=== PATIENT | female | born 2000 | race Caucasian/White ===

== ENCOUNTER 2019-04-09 11:11 | Emergency (ER) | payer OTHER, SELFPAY ==
--- NOTE | 2019-04-09 11:14 | ED_ITS ---
HPI - URI/Sore Throat <Pauline Cox PA-C - Last Filed: 04/09/19 12:39> General Chief Complaint: Upper Respiratory Symptoms Stated Complaint: flu symptoms Time Seen by Provider: 04/09/19 11:13 Source: patient Mode of arrival: Ambulatory Limitations: no limitations History of Present Illness HPI Narrative: This healthy 19-year-old female comes to ED due to concern for possible influenza. She is 18 weeks , doing well with . She flew here from [place] 2 days ago to visit significant other's family. Significant other and his mother have been ill with similar symptoms. She states that yesterday, she developed sore throat ?burning, not like strep throat?, and sinus pain and pressure, earache, more on the right, and watery eyes. She has had nasal congestion. She states that she has mostly dry cough, sometimes chest hurts with cough, otherwise she denies chest pain, she denies dyspnea. She denies any new pain or swelling in her extremities. She denies any rash. She states that she felt warm earlier but has not had any known fever. She does have body aches. She denies any non domestic travel/terrell virus exposure Related Data Allergies Allergy/AdvReac Type Severity Reaction Status Date / Time No Known Drug Allergies Allergy Verified 04/09/19 11:18 Review of Systems <Pauline Cox PA-C - Last Filed: 04/09/19 12:39> Review of Systems ROS Unobtainable: All systems reviewed & are unremarkable except as noted in HPI and below Patient History <Pauline Cox PA-C - Last Filed: 04/09/19 12:39> Medical History (Updated 04/09/19 @ 12:14 by Pauline Cox PA-C) Patient denies medical problems (Chronic) Surgical History (Updated 04/09/19 @ 11:37 by Pauline Cox PA-C) No history of previous surgery (Chronic) Social History Smoking Status: Never smoker Smoking Status: Never smoker Exam <Pauline Cox PA-C - Last Filed: 04/09/19 12:39> Narrative Exam Narrative: GENERAL APPEARANCE: Patient sitting comfortably, appears well HEAD: Mild generalized sinus tenderness EYES: PERRL, EOMI. EARS: Normal auditory canals, TMS intact with normal light reflexes. ORAL CAVITY: Normal oropharynx. THROAT: Minimal erythema, PND noted, no exudate NECK/THYROID: Neck supple, full range of motion, shotty anterior cervical lymphadenopathy. LUNGS: Clear to auscultation bilaterally, no cough on exam. HEART: RRR without murmur, nl S1, S2, no S3 or S4. DERMATOLOGIC: No exanthem EXTREMITIES: No edema, no calf tenderness Initial Vital Signs Initial Vital Signs: Vital Signs Temperature 97.3 F L 04/09/19 11:18 Pulse Rate 109 H 04/09/19 11:18 Respiratory Rate 15 04/09/19 11:18 Blood Pressure 145/74 H 04/09/19 11:18 Pulse Oximetry 99 04/09/19 11:18 <Stephen Garrido DO - Last Filed: 04/09/19 12:45> Initial Vital Signs Initial Vital Signs: Vital Signs Temperature 97.3 F L 04/09/19 11:18 Pulse Rate 109 H 04/09/19 11:18 Respiratory Rate 15 04/09/19 11:18 Blood Pressure 145/74 H 04/09/19 11:18 Pulse Oximetry 99 04/09/19 11:18 Course <Pauline Cox PA-C - Last Filed: 04/09/19 12:39> Orders Ordered: ED Orders 04/09/19 11:15 Influenza A & B (PCR) Stat Vital Signs Vital signs: Vital Signs - 8 hr 04/09/19 11:18 04/09/19 12:25 Temperature 97.3 F L Pulse Rate 109 H 88 Respiratory Rate 15 Blood Pressure 145/74 H 121/84 Pulse Oximetry 99 100 <Stephen Garrido DO - Last Filed: 04/09/19 12:45> Orders Ordered: ED Orders 04/09/19 11:15 Influenza A & B (PCR) Stat Vital Signs Vital signs: Vital Signs - 8 hr 04/09/19 11:18 04/09/19 12:25 Temperature 97.3 F L Pulse Rate 109 H 88 Respiratory Rate 15 Blood Pressure 145/74 H 121/84 Pulse Oximetry 99 100 MDM - URI/Sore Throat <Pauline Cox PA-C - Last Filed: 04/09/19 12:39> Lab Data Labs: Lab Results 04/09/19 Range/Units 11:15 Influenza A (RT-PCR) Flu a negative (NEGATIVE) Influenza B (RT-PCR) Flu b negative (NEGATIVE) <Stephen Garrido DO - Last Filed: 04/09/19 12:45> Lab Data Labs: Lab Results 04/09/19 Range/Units 11:15 Influenza A (RT-PCR) Flu a negative (NEGATIVE) Influenza B (RT-PCR) Flu b negative (NEGATIVE) Discharge Plan Departure Patient Disposition: Home Clinical Impression: Upper respiratory infection Qualifiers: URI type: unspecified viral URI Qualified Code(s): J06.9 - Acute upper respiratory infection, unspecified Discharge Date/Time: 04/09/19 12:26 Instructions: DI for Viral Upper Respiratory Infection -- Adult Activity Restrictions/Additional Instructions: Your test for the flu is negative today, and given your exposures it is most likely that you have another viral upper respiratory infection. Please rest, take Tylenol as needed for aches or fever. You can use an [id number] antihistamine such as Benadryl or Zyrtec if needed for postnasal drip. As we talked about, you should return to the ED if you develop a high fever not responding to Tylenol, or have difficulty breathing, new chest pain or other new symptoms that you are concerned about Referrals: Zaki Reeder [Other] <Stephen Garrido DO - Last Filed: 04/09/19 12:45> Sign Out Provider Sign Out Attestation: Dr Garrido Co-Sign Statement: I was available for consultation during this patient's emergency department visit. This chart is signed by myself for administrative purposes only. I did not have direct contact with this patient during this visit. They were seen independently by the APC.
[2019-04-09 11:18] VITALS: BP 145/74; PULSE 109; RESP 15; TEMP 36.3; O2SAT 99; BMI 19.5
[2019-04-09 11:53] LABS: Influenza A - CEPHEID Flu A NEGATIVE (NEGATIVE); Influenza B - CEPHEID Flu B NEGATIVE (NEGATIVE)
[2019-04-09 12:25] VITALS: BP 121/84; PULSE 88; O2SAT 100
== END 2019-04-09 12:26 | disposition home or self-care (01) ==
PROVIDERS: Emergency Provider Internal Medicine
DX: J02.9 Acute pharyngitis, unspecified (principal)
CPT/HCPCS: 87502; 99281; 99283

== ENCOUNTER 2019-04-11 12:39 | Emergency (ER) | payer OTHER, SELFPAY ==
[2019-04-11 12:40] VITALS: BP 135/64; PULSE 100; RESP 18; TEMP 36.4; O2SAT 99
--- NOTE | 2019-04-11 12:46 | DI.US.S_ITS ---
PROCEDURE: US OB LIMITED INDICATIONS: VAGINAL BLEEIDNG, CRAMPING TECHNIQUE: Real-time scanning was performed of the fetus, with image documentation. COMPARISON: None. FINDINGS: A single living intrauterine gestation is present. Presentation: Cephalic Placenta: Placental position is anterior without evidence of previa. There is a small hypoechoic focus along the posterior aspect of the anterior uterus that measures 1.6 x 0.6 x 0.9 cm it does not demonstrate internal vascularity. Amniotic fluid index: 13.3 cm, normal range is 5-24 cm. heart rate: 150 beats per minute. Maternal cervical canal: 3.3 cm, closed without funneling. Estimated gestational age from initial scan: 19 weeks. IMPRESSION: 1. Questionable very small retroplacental hemorrhage. Followup imaging would be helpful to evaluate for progression. 2. Live intrauterine . 3. Closed cervix. No previa. Dictated by: Keyshawn Owens M.D. on 04/11/2019 at 12:19 Approved by: Keyshawn Owens M.D. on 04/11/2019 at 12:22
--- NOTE | 2019-04-11 12:59 | ED_ITS ---
HPI - <Gilson SchmidtBILL chauhan - Last Filed: 04/11/19 14:24> General Chief complaint: OB/Uterine Contractions Stated complaint: 19 wks preg, cramping and bleeding Time Seen by Provider: 04/11/19 12:46 Source: patient Mode of arrival: Ambulatory Limitations: no limitations History of Present Illness HPI Narrative: This is a 19-year-old female, nonsmoker,who presents to ED with significant other with chief complain of vaginal bleeding which started 30 minutes prior arriving to ED and she is currently . Patient states she had suprapubic cramping discomfort for last 2 days. Patient reports IUP has been verified in [place], [place] and is a visitor. Reports last menstruation was in mid October 2018 and her in [place] is 09/05/2019. This is . Patient reports she has established OB care back at home and she will be returning to home in [place] on 04/21/19. Patient denies chest pain, breathing difficulty, lightheadedness, nausea or vomiting, urinary symptoms. She reports mild cold symptoms but no fever. Hx Last Menstrual Period: mid October 2018 Expected Date of Delivery: 09/05/19 Related Data Home Medications Medication Instructions Recorded Confirmed vit-iron fum-folic ac 1 tab PO DAILY 04/11/19 04/11/19 [ Vitamin] Allergies Allergy/AdvReac Type Severity Reaction Status Date / Time No Known Drug Allergies Allergy Verified 04/09/19 11:18 Review of Systems <Gilson HoffmanBILL - Last Filed: 04/11/19 14:24> Review of Systems Narrative: General: Denies fever, chills, fatigue, malaise, sweats. HEENT: Denies sinus pain, ear pain, sore throat, difficulty swallowing, dizziness. Respiratory: Denies dyspnea, (+) mild cough, wheezing, hemoptysis, sputum. Cardiovascular: Denies chest pain, palpitations, orthopnea, edema. Gastrointestinal: Denies nausea, vomiting, (+) constant suprapubic cramping pain 6/10, diarrhea, constipation, melena. : Denies dysuria, frequency, incontinence, hematuria, urinary retention. Musculoskeletal: Denies weakness, joint pain or bony pain. Skin: Denies rash, skin lesions, or other. Neurologic: Denies weakness, headache, numbness, change in speech, confusion, seizures, incoordination. Psychiatric: No concerning psychosocial issues. 12-point review of systems is negative except for those stated above. PMFSH - <BILL Zamora - Last Filed: 04/11/19 14:24> Past Medical History Medical history: Reports no medical history Surgical history: Reports no surgical history CHIEF OF PEDIATRIC UROLOGY history: Reports No CHIEF OF PEDIATRIC UROLOGY History Hx Last Menstrual Period: mid October 2018 Expected Date of Delivery: 09/05/19 Psychiatric history: Reports no psych history Exam <BILL Zamora - Last Filed: 04/11/19 14:24> Narrative Exam Narrative: GEN: Alert, oriented x 3, well appearing and nourished, and in no acute distress. Head: Normal cephalic, atraumatic. No scalp or temporal tenderness, palpable mass or rash. EYES: Pupils are equal, round, and reactive to light and accommodation. Extraocular muscles are intact bilaterally. There is no subconjunctival hemorrhage, exudate and sclera non-icteric. ENT: Hearing grossly intact. Nose without bleeding, purulent discharge or deviation. Facial sinuses nontender to palpate. Mucous membrane moist, no mucosal lesion. Throat without erythema, tonsillar hypertrophy or exudate. Uvula in midline, airway patent. Neck: Trachea in midline. No JVD, non-tender without lymphadenopathy. No masses or thyroid megaly. Supple, non-tender and no meningeal signs. CARDIAC: Normal regular rate and rhythm without murmurs, gallops, or rubs. No chest wall tenderness. No peripheral edema, cyanosis or pallor. Capillary refi ll is less than 2 seconds. RESPIRATORY: Lungs are clear to auscultate bilaterally. No cough, wheezes, rales, or rhonchi. No stridor, respiratory distress, increase work of breathing, or accessary muscle used. ABD: Abdomen soft, mild tenderness to palpate in suprapubic region and non-distended. No guarding or rebound tenderness to palpate. Bowel sounds are normal in all 4 quadrants. There is no palpable masses or organomegaly. EXT: Full painless ROM of all extremities with no loss of sensation, strength, effusion or edema. SKIN: Warm, dry, normal color for patient. No erythema, lesions or rash over visible areas. BACK: Nontender without deformity or crepitance. No flank tenderness. NEUROLOGICAL: Alert and oriented to place, time and person. Sensation and motor function intact bilaterally. No facial droops, dysphasia. PSYCHIATRIC: Good judgement and reason, without hallucinations, abnormal affect or abnormal behaviors during the examination. Initial Vital Signs Initial Vital Signs: Vital Signs Temperature 97.6 F 04/11/19 12:40 Pulse Rate 100 H 04/11/19 12:40 Respiratory Rate 18 04/11/19 12:40 Blood Pressure 135/64 04/11/19 12:40 Pulse Oximetry 99 04/11/19 12:40 <Hiren Baker MD - Last Filed: 04/12/19 08:20> Initial Vital Signs Initial Vital Signs: Vital Signs Temperature 97.6 F 04/11/19 12:40 Pulse Rate 100 H 04/11/19 12:40 Respiratory Rate 18 04/11/19 12:40 Blood Pressure 135/64 04/11/19 12:40 Pulse Oximetry 99 04/11/19 12:40 Scores <BILL Zamora - Last Filed: 04/11/19 14:24> GCS [place] coma scale eye opening: Spontaneous [place] coma scale verbal response: Orientated [place] coma scale motor response: Obey commands [place] coma scale total score: 15 Course <BILL Zamora - Last Filed: 04/11/19 14:24> Orders Ordered: ED Orders 04/11/19 12:46 US OB limited Stat 04/11/19 12:50 ABO RH Type Stat Complete Blood Count AUTO DIFF Stat Comprehensive Metabolic Panel Stat HCG Quantitative /Beta subunit Stat Partial Thromboplastin Time Stat Prothrombin Time INR Stat Vital Signs Vital signs: Vital Signs - 8 hr 04/11/19 12:40 04/11/19 13:51 Temperature 97.6 F Pulse Rate 100 H 88 Respiratory Rate 18 Blood Pressure 135/64 Blood Pressure [Right Arm] 134/83 Pulse Oximetry 99 100 <Hiren Baker MD - Last Filed: 04/12/19 08:20> Orders Ordered: ED Orders 04/11/19 12:46 US OB limited Stat 04/11/19 12:50 ABO RH Type Stat Complete Blood Count AUTO DIFF Stat Comprehensive Metabolic Panel Stat HCG Quantitative /Beta subunit Stat Partial Thromboplastin Time Stat Prothrombin Time INR Stat Vital Signs Vital signs: Vital Signs - 8 hr 04/11/19 12:40 04/11/19 13:51 Temperature 97.6 F Pulse Rate 100 H 88 Respiratory Rate 18 Blood Pressure 135/64 Blood Pressure [Right Arm] 134/83 Pulse Oximetry 99 100 MDM - OB/Uterine Contractions <BILL Zamora - Last Filed: 04/11/19 14:24> Differential Diagnosis Differential diagnosis: Likely eclampsia and other (Placenta rupture, placenta previa, contraction, miscarriage) Medical Records Attestation: I reviewed the patient's medical records. Lab Data Attestation: I reviewed the patient's lab results. Result diagrams: 04/11/19 12:50 04/11/19 12:50 Labs: Lab Results 04/11/19 04/11/19 04/11/19 Range/Units 12:50 12:50 12:50 WBC 12.9 H (4.5-11.0) X10^3/uL RBC 3.58 L (4.0-5.2) X10^6/uL Hgb 11.0 L (12.0-16.0) g/dL Hct 32.7 L (36-46) % MCV 91.4 (80-100) fL MCH 30.9 (26-34) PG MCHC 33.8 (30-36) % RDW 13.2 (11.6-14.8) % Plt Count 266 (150-400) X10^3/uL Neut % (Auto) 81.6 H (50-75) % Lymph % (Auto) 8.7 L (25-40) % [place] % (Auto) 7.2 (3-14) % Eos % (Auto) 2.3 (2-4) % Baso % (Auto) 0.2 (0-2) % Neut # (Auto) 22130 H (8289-7041) /uL Lymph # (Auto) 1100 (7018-1768) /uL [place] # (Auto) 900 (0-900) /uL Eos # (Auto) 300 (0-450) /uL Baso # (Auto) 0 (0-100) /uL PT (10.1-12.7) SECONDS INR (0.9-1.3) APTT (26.4-36.2) SECONDS Sodium 136 L (137-145) mmol/L Potassium 3.8 (3.4-5.1) mmol/L Chloride 107 (98-107) mmol/L Carbon Dioxide 22 (22-32) mmol/L BUN 6 L (7-17) mg/dL Creatinine 0.50 L (0.52-1.04) mg/dL Estimated GFR > 60.0 (>60) mL/min BUN/Creatinine Ratio 12.0 (6-22) Glucose 85 (70-100) mg/dL Calcium 9.0 (8.4-10.2) mg/dL Total Bilirubin 0.2 (0.2-1.3) mg/dL AST 20 (14-36) IU/L ALT 14 (<35) IU/L Alkaline Phosphatase 64 (38-126) U/L Total Protein 6.7 (6.3-8.2) g/dL Albumin 3.5 (3.5-5.0) g/dL Globulin 3.2 (1.7-4.1) g/dL Albumin/Globulin Ratio 1.1 (1.0-2.8) HCG, Quant 64136 mIU/mL Blood Type A Positive 04/11/19 Range/Units 12:50 WBC (4.5-11.0) X10^3/uL RBC (4.0-5.2) X10^6/uL Hgb (12.0-16.0) g/dL Hct (36-46) % MCV (80-100) fL MCH (26-34) PG MCHC (30-36) % RDW (11.6-14.8) % Plt Count (150-400) X10^3/uL Neut % (Auto) (50-75) % Lymph % (Auto) (25-40) % [place] % (Auto) (3-14) % Eos % (Auto) (2-4) % Baso % (Auto) (0-2) % Neut # (Auto) (4766-9777) /uL Lymph # (Auto) (1741-9826) /uL [place] # (Auto) (0-900) /uL Eos # (Auto) (0-450) /uL Baso # (Auto) (0-100) /uL PT 11.2 (10.1-12.7) SECONDS INR 1.0 (0.9-1.3) APTT 26 L (26.4-36.2) SECONDS Sodium (137-145) mmol/L Potassium (3.4-5.1) mmol/L Chloride (98-107) mmol/L Carbon Dioxide (22-32) mmol/L BUN (7-17) mg/dL Creatinine (0.52-1.04) mg/dL Estimated GFR (>60) mL/min BUN/Creatinine Ratio (6-22) Glucose (70-100) mg/dL Calcium (8.4-10.2) mg/dL Total Bilirubin (0.2-1.3) mg/dL AST (14-36) IU/L ALT (<35) IU/L Alkaline Phosphatase (38-126) U/L Total Protein (6.3-8.2) g/dL Albumin (3.5-5.0) g/dL Globulin (1.7-4.1) g/dL Albumin/Globulin Ratio (1.0-2.8) HCG, Quant mIU/mL Blood Type Urine Dip Bedside Urine Glucose Negative Bedside Urine Bilirubin - Negative Bedside Urine Ketone - Negative Urine Specific [place] 1.005 Bedside Urine Occult Blood - Negative Bedside Urine pH 6.5 Bedside Urine Protein - Negative Bedside Urine Urobilinogen - Negative Bedside Urine Nitrite - Negative Bedside Urine Leukocytes - Negative Esterase Imaging Data US - OB: Radiologist's Impression: [place] [address] Ultrasound Report Signed Patient: Jewell Biggs MMR#: [id number] : 2000Acct:[id number] Age/Sex: te of Service: 04/11/19 Loc: ED Accession Number: [id number] Procedure: US OB limited Ordering Provider: Hiren Baker MD PROCEDURE: US OB LIMITED INDICATIONS: VAGINAL BLEEIDNG, CRAMPING TECHNIQUE: Real-time scanning was performed of the fetus, with image documentation. COMPARISON: None. FINDINGS: A single living intrauterine gestation is present. Presentation: Cephalic Placenta: Placental position is anterior without evidence of previa. There is a small hypoechoic focus along the posterior aspect of the anterior uterus that measures 1.6 x 0.6 x 0.9 cm it does not demonstrate internal vascularity. Amniotic fluid index: 13.3 cm, normal range is 5-24 cm. heart rate: 150 beats per minute. Maternal cervical canal: 3.3 cm, closed without funneling. Estimated gestational age from initial scan: 19 weeks. IMPRESSION: 1. Questionable very small retroplacental hemorrhage. Followup imaging would be helpful to evaluate for progression. 2. Live intrauterine . 3. Closed cervix. No previa. Dictated by: Keyshawn Owens M.D. on 04/11/2019 at 12:19 Approved by: Keyshawn Owens M.D. on 04/11/2019 at 12:22 [facility] Narrative Medical decision making narrative: This is a about 19 week EGA female who is visiting from [place] presents to ED with light vaginal bleeding which started 30 minutes prior coming into ED with abdomen cramping discomfort for 2 days. Urine test does not indicate urinary tract infection. Ob ultrasound test shows questionable small retro placental hemorrhage without evidence of previa. heart tone was 150 with closed cervix. Patient re ports her bleeding has not been increasing since came into ED. patient had stable vital signs with normal blood pressure. CBC shows mild anemia and patient is currently taking vitamins and informed that patient could add low dose of iron supplements. Unremarkable [place] [address] and A positive blood type. Dr. Grace (CHIEF OF PEDIATRIC UROLOGY) was consulted over the phone and advised pelvic rest and avoid strenuous activities and to follow up with rinkman provider when she returns to home with strict return precautions to ED. patient informed it is okay to take Tylenol as needed and provided ultrasound report to patient. Patient verbalized understanding and in agreement with the treatment plan. <Hiren Baker MD - Last Filed: 04/12/19 08:20> Lab Data Labs: Lab Results 04/11/19 04/11/19 04/11/19 Range/Units 12:50 12:50 12:50 WBC 12.9 H (4.5-11.0) X10^3/uL RBC 3.58 L (4.0-5.2) X10^6/uL Hgb 11.0 L (12.0-16.0) g/dL Hct 32.7 L (36-46) % MCV 91.4 (80-100) fL MCH 30.9 (26-34) PG MCHC 33.8 (30-36) % RDW 13.2 (11.6-14.8) % Plt Count 266 (150-400) X10^3/uL Neut % (Auto) 81.6 H (50-75) % Lymph % (Auto) 8.7 L (25-40) % [place] % (Auto) 7.2 (3-14) % Eos % (Auto) 2.3 (2-4) % Baso % (Auto) 0.2 (0-2) % Neut # (Auto) 95213 H (4852-9259) /uL Lymph # (Auto) 1100 (8154-8476) /uL [place] # (Auto) 900 (0-900) /uL Eos # (Auto) 300 (0-450) /uL Baso # (Auto) 0 (0-100) /uL PT (10.1-12.7) SECONDS INR (0.9-1.3) APTT (26.4-36.2) SECONDS Sodium 136 L (137-145) mmol/L Potassium 3.8 (3.4-5.1) mmol/L Chloride 107 (98-107) mmol/L Carbon Dioxide 22 (22-32) mmol/L BUN 6 L (7-17) mg/dL Creatinine 0.50 L (0.52-1.04) mg/dL Estimated GFR > 60.0 (>60) mL/min BUN/Creatinine Ratio 12.0 (6-22) Glucose 85 (70-100) mg/dL Calcium 9.0 (8.4-10.2) mg/dL Total Bilirubin 0.2 (0.2-1.3) mg/dL AST 20 (14-36) IU/L ALT 14 (<35) IU/L Alkaline Phosphatase 64 (38-126) U/L Total Protein 6.7 (6.3-8.2) g/dL Albumin 3.5 (3.5-5.0) g/dL Globulin 3.2 (1.7-4.1) g/dL Albumin/Globulin Ratio 1.1 (1.0-2.8) HCG, Quant 08637 mIU/mL Blood Type A Positive 04/11/19 Range/Units 12:50 WBC (4.5-11.0) X10^3/uL RBC (4.0-5.2) X10^6/uL Hgb (12.0-16.0) g/dL Hct (36-46) % MCV (80-100) fL MCH (26-34) PG MCHC (30-36) % RDW (11.6-14.8) % Plt Count (150-400) X10^3/uL Neut % (Auto) (50-75) % Lymph % (Auto) (25-40) % [place] % (Auto) (3-14) % Eos % (Auto) (2-4) % Baso % (Auto) (0-2) % Neut # (Auto) (8579-5004) /uL Lymph # (Auto) (3804-4526) /uL [place] # (Auto) (0-900) /uL Eos # (Auto) (0-450) /uL Baso # (Auto) (0-100) /uL PT 11.2 (10.1-12.7) SECONDS INR 1.0 (0.9-1.3) APTT 26 L (26.4-36.2) SECONDS Sodium (137-145) mmol/L Potassium (3.4-5.1) mmol/L Chloride (98-107) mmol/L Carbon Dioxide (22-32) mmol/L BUN (7-17) mg/dL Creatinine (0.52-1.04) mg/dL Estimated GFR (>60) mL/min BUN/Creatinine Ratio (6-22) Glucose (70-100) mg/dL Calcium (8.4-10.2) mg/dL Total Bilirubin (0.2-1.3) mg/dL AST (14-36) IU/L ALT (<35) IU/L Alkaline Phosphatase (38-126) U/L Total Protein (6.3-8.2) g/dL Albumin (3.5-5.0) g/dL Globulin (1.7-4.1) g/dL Albumin/Globulin Ratio (1.0-2.8) HCG, Quant mIU/mL Blood Type Urine Dip Bedside Urine Glucose Negative Bedside Urine Bilirubin - Negative Bedside Urine Ketone - Negative Urine Specific [place] 1.005 Bedside Urine Occult Blood - Negative Bedside Urine pH 6.5 Bedside Urine Protein - Negative Bedside Urine Urobilinogen - Negative Bedside Urine Nitrite - Negative Bedside Urine Leukocytes - Negative Esterase Discharge Plan Departure Patient Disposition: Home Clinical Impression: Vaginal bleeding in patient after first trimester Discharge Date/Time: 04/11/19 14:35 Instructions: Placental Abruption, DI for Vaginal Bleeding During Activity Restrictions/Additional Instructions: You have been diagnosed with [vaginal bleeding during 2nd trimester. There is a small questionable retroplacental hemorrhage per ultrasound test. heart tone was 150. No obvious evidence of placenta previa today. You are slightly anemic per blood test today. Your blood type is A-positive and beta [place]cg was [address]. Your blood pressure was normal. Urine test does not show infection. Please do pelvic rest and no strenuous activities until your clear with your rinkman doctor.]. What to do: *Take your medications as directed. Please continue to take vitamins and you can even add a low dose of iron pills. You can take [id number] Tylenol for discomfort as needed. *Follow up with your OBGYN provider when you return to home in [place] on 04/21/19. Let them know you were seen in the ED and that we asked you to be seen in follow up. Please take the ambulance that was provided to you with ultrasound test result. *Return to ED if you have any new, worsening, or concerning symptoms, such as [increasing vaginal bleeding, pain, chest pain, breathing difficulty, lightheadedness, fainting episode, fever, or any acute concerns]. Prescriptions: No Action Vitamin 27 mg iron- 0.8 mg tablet 1 tab PO DAILY RF: 0
[2019-04-11 13:02] LABS: Add Manual Diff / Slide Review NO; Basophils Absolute Auto 0 /uL (0-100); Basophils Percent Auto 0.2 % (0-2); Eosinophils Absolute Auto 300 /uL (0-450); Eosinophils Percent Auto 2.3 % (2-4); Hematocrit 32.7 % (36-46); Lymphocytes Absolute Auto 1100 /uL (1100-4500); Lymphocytes Percent Auto 8.7 % (25-40); Mean Corpuscular HGB Conc 33.8 % (30-36); Mean Corpuscular Hemoglobin 30.9 PG (26-34); Mean Corpuscular Volume 91.4 fL (80-100); Monocytes Absolute Auto 900 /uL (0-900); Monocytes Percent Auto 7.2 % (3-14); Neutrophils Absolute Auto 10600 /uL (1500-7000); Neutrophils Percent Auto 81.6 % (50-75); Platelet Count 266 X10^3/uL (150-400); Red Blood Cell Count 3.58 X10^6/uL (4.0-5.2); Red Cell Distribution Width 13.2 % (11.6-14.8); White Blood Cell Count 12.9 X10^3/uL (4.5-11.0)
[2019-04-11 13:15] LABS: Alanine Aminotransferase 14 IU/L (<35); Albumin 3.5 g/dL (3.5-5.0); Albumin Globulin Ratio 1.1 (1.0-2.8); Alkaline Phosphatase 64 U/L (38-126); Aspartate Aminotransferase 20 IU/L (14-36); Bilirubin Total 0.2 mg/dL (0.2-1.3); Blood Urea Nitrogen 6 mg/dL (7-17); Carbon Dioxide 22 mmol/L (22-32); Chloride 107 mmol/L (98-107); Estimated Glomerular Filt Rate > 60.0 mL/min (>60); Globulin 3.2 g/dL (1.7-4.1); Glucose 85 mg/dL (70-100); HEMOLYSIS < 15 (0-50); Potassium 3.8 mmol/L (3.4-5.1); Sodium 136 mmol/L (137-145); Total Protein 6.7 g/dL (6.3-8.2)
[2019-04-11 13:20] LABS: Prothrombin Time 11.2 SECONDS (10.1-12.7)
[2019-04-11 13:23] LABS: PTT Partial Thromboplastin Tim 26 SECONDS (26.4-36.2)
[2019-04-11 13:51] VITALS: BP 134/83; PULSE 88; O2SAT 100
[2019-04-11 13:55] LABS: HCG Quantitative /Beta subunit 38479 mIU/mL
[2019-04-11 14:34] VITALS: BP 142/77; PULSE 87; RESP 17; O2SAT 100
== END 2019-04-11 14:35 | disposition home or self-care (01) ==
PROVIDERS: Emergency Medicine; Emergency Provider Nurse Practitioner Family
DX: O46.90 Antepartum hemorrhage, unspecified, unspecified trimester (principal); Z3A.19 19 weeks gestation of pregnancy
CPT/HCPCS: 36415; 76815; 80053; 81003; 84702; 85025; 85610; 85730; 86900; 86901; 99284

== ENCOUNTER 2019-04-12 13:29 | Emergency (ER) | payer OTHER, SELFPAY ==
[2019-04-12 14:00] VITALS: BP 120/65; PULSE 110; RESP 18; TEMP 37.1; O2SAT 100; BMI 19.5
[2019-04-12 17:05] LABS: Add Manual Diff / Slide Review NO; Basophils Absolute Auto 0 /uL (0-100); Basophils Percent Auto 0.2 % (0-2); Eosinophils Absolute Auto 200 /uL (0-450); Eosinophils Percent Auto 1.7 % (2-4); Hematocrit 34.5 % (36-46); Hemoglobin 11.5 g/dL (12.0-16.0); Lymphocytes Absolute Auto 800 /uL (1100-4500); Lymphocytes Percent Auto 7.1 % (25-40); Mean Corpuscular HGB Conc 33.3 % (30-36); Mean Corpuscular Hemoglobin 30.4 PG (26-34); Mean Corpuscular Volume 91.4 fL (80-100); Monocytes Absolute Auto 700 /uL (0-900); Monocytes Percent Auto 5.8 % (3-14); Neutrophils Absolute Auto 10200 /uL (1500-7000); Neutrophils Percent Auto 85.2 % (50-75); Platelet Count 267 X10^3/uL (150-400); Red Blood Cell Count 3.78 X10^6/uL (4.0-5.2); Red Cell Distribution Width 13.2 % (11.6-14.8); White Blood Cell Count 11.9 X10^3/uL (4.5-11.0)
[2019-04-12 17:18] LABS: Alanine Aminotransferase 13 IU/L (<35); Albumin 3.6 g/dL (3.5-5.0); Albumin Globulin Ratio 1.1 (1.0-2.8); Alkaline Phosphatase 73 U/L (38-126); Aspartate Aminotransferase 19 IU/L (14-36); Bilirubin Total 0.3 mg/dL (0.2-1.3); Blood Urea Nitrogen 6 mg/dL (7-17); Calcium 8.7 mg/dL (8.4-10.2); Carbon Dioxide 23 mmol/L (22-32); Chloride 106 mmol/L (98-107); Estimated Glomerular Filt Rate > 60.0 mL/min (>60); Globulin 3.3 g/dL (1.7-4.1); Glucose 77 mg/dL (70-100); HEMOLYSIS < 15 (0-50); Lipase 30 U/L (23-300); Sodium 136 mmol/L (137-145); Total Protein 6.9 g/dL (6.3-8.2)
[2019-04-12] MEDS: SODIUM CHLORIDE 0.9% 1,000 ML 1000 ML IV (18:02)
[2019-04-12] MEDS: ONDANSETRON 4 MG/2 ML INJ IV (18:02)
[2019-04-12] MEDS: PANTOPRAZOLE 40 MG VIAL IV (18:02)
[2019-04-12 18:25] LABS: RBC Urine None Seen (0-5/HPF)
[2019-04-12 18:43] LABS: Amorphous Sediment Urine 1+; Bacteria Urine Many (>30); Squamous Epithelial Cell Urine 5-10 /HPF (0-5/HPF); WBC Urine 5-10/HPF (0-5/HPF)
[2019-04-12 18:44] LABS: Culture Indicated Urine Specimen Cultured; Mucus Urine 1+ (Negative)
[2019-04-12] MEDS: NITROFURANTOIN ER 100 MG CAPSULE PO (19:18)
[2019-04-12] MEDS: ONDANSETRON 4 MG ODT PREPACK 1 BOTTLE MISC (19:57)
[2019-04-12 20:09] VITALS: BP 119/56; PULSE 98; RESP 16; TEMP 36.9; O2SAT 100
--- NOTE | 2019-04-13 01:42 | ED.NAVMDI ---
HPI - Nausea/Vomiting/Diarrhea <POLY ZamoraP - Last Filed: 04/13/19 01:59> General Chief complaint: Nausea/Vomiting/Diarrhea Stated complaint: vomiting Time Seen by Provider: 04/12/19 16:01 Source: patient Mode of arrival: Family Vehicle Limitations: no limitations History of Present Illness HPI Narrative: This is a 19-year-old female, nonsmoker, who presents to ED with multiple episodes of vomiting which started last night with low abdominal cramping discomfort and burning epigastric discomfort. Patient reports she also has URI symptoms and has a moist cough. Patient reports her vomiting is not associated with cough. Her nausea is increased with eating and drinking fluid. Patient denies blood in her emesis. Patient is currently 19 week EGA and was seen yesterday in ED with a small amount of vaginal bleeding and low abdominal cramping and was diagnosed with retroplacental hemorrhage. Patient denies further vaginal bleeding at this time and states has been feeling her fetus movement as usual. Patient denies urinary symptoms or fever and chills. She is a visitor from [facility] and will return to home later this month. Related Data Home Medications Medication Instructions Recorded Confirmed vit-iron fum-folic ac 1 tab PO DAILY 04/11/19 04/11/19 [ Vitamin] Previous Rx's Medication Instructions Recorded nitrofurantoin macrocrystal 100 mg PO Q12H 5 Days #9 cap 04/12/19 ondansetron 4 mg PO Q6-8H PRN #10 tab 04/12/19 Allergies Allergy/AdvReac Type Severity Reaction Status Date / Time No Known Drug Allergies Allergy Verified 04/12/19 14:04 Review of Systems <BILL Zamora - Last Filed: 04/13/19 01:59> Review of Systems Narrative: General: Denies fever, chills, fatigue, malaise, sweats. HEENT: Denies sinus pain, ear pain, sore throat, difficulty swallowing, dizziness. Respiratory: Denies dyspnea, cough, wheezing, hemoptysis, sputum. Cardiovascular: Denies chest pain, palpitations, orthopnea, edema. Gastrointestinal: See HPI : Denies dysuria, frequency, incontinence, hematuria, urinary retention. Musculoskeletal: Denies weakness, joint pain or bony pain. Skin: Denies rash, skin lesions, or other. Neurologic: Denies weakness, headache, numbness, change in speech, confusion, seizures, incoordination. Psychiatric: No concerning psychosocial issues. 12-point review of systems is negative except for those stated above. Patient History <BILL Zamora - Last Filed: 04/13/19 01:59> Medical History Patient denies medical problems (Chronic) Surgical History No history of previous surgery (Chronic) Social History Smoking Status: Never smoker Smoking Status: Never smoker alcohol intake frequency: 0-2 drinks per day Substance Use Type: does not use Exam <BILL Zamora - Last Filed: 04/13/19 01:59> Narrative Exam Narrative: General appearance: well developed, well nourished, in no acute distress. Head: normocephalic, atraumatic, no scalp lesions, non-tender. ENT: Hearing grossly intact. Mucous membrane moist, no mucosal lesion. Throat without erythema, tonsillar hypertrophy or exudate. Uvula in midline, airway patent. Neck/Thyroid: neck supple, full range of motion, no visible masses or meningeal signs. No JVD, non-tender without lymphadenopathy. Skin: no suspicious rashes, lesions over visible areas. Warm and dry and appropriate color for ethnicity. Heart: no clubbing, no cyanosis, no edema. S1 and S2 normal. RRR w/o murmurs, clicks, or bruits. Lungs: Breathing even and unlabored. No stridor. No accessory muscles used. Able to speak in full sentences. Chest: normal shape and expansion. Abdomen: non-obese, non-distended, bowel sounds intake in all quadrant. There is no guarding, rebound tenderness, organomegaly. Mild tenderness to palpate in epigastric region. Neurologic: alert and oriented. Cognitive exam, DISABILITY COUNSELOR and PNS grossly intact on informal exam. Psych: good eye contact, normal affect. Initial Vital Signs Initial Vital Signs: Vital Signs Temperature 98.7 F 04/12/19 14:00 Pulse Rate 110 H 04/12/19 14:00 Respiratory Rate 18 04/12/19 14:00 Blood Pressure 120/65 04/12/19 14:00 Pulse Oximetry 100 04/12/19 14:00 Other: FHT in 145-154 <Hiren Baker MD - Last Filed: 04/13/19 23:17> Initial Vital Signs Initial Vital Signs: Vital Signs Temperature 98.7 F 04/12/19 14:00 Pulse Rate 110 H 04/12/19 14:00 Respiratory Rate 18 04/12/19 14:00 Blood Pressure 120/65 04/12/19 14:00 Pulse Oximetry 100 04/12/19 14:00 Scores <BILL Zamora - Last Filed: 04/13/19 01:59> GCS [place] coma scale eye opening: Spontaneous Rashid coma scale verbal response: Orientated Rashid coma scale motor response: Obey commands Rashid coma scale total score: 15 Course <BILL Zamora - Last Filed: 04/13/19 01:59> Orders Ordered: Discontinued Medications Sodium Chloride (Normal Saline 0.9%) 1,000 mls @ 1,000 mls/hr IV BOLUS ONE Stop: 04/12/19 17:14 Last Infusion: 04/12/19 19:19 Dose: 0 mls/hr Documented by: Admin: 04/12/19 18:02 Dose: 1,000 mls/hr Documented by: JOANNE Nitrofurantoin Macrocrystals (Macrobid 100 Mg Capsule) 100 mg PO NOW ONE Stop: 04/12/19 19:10 Last Admin: 04/12/19 19:18 Dose: 100 mg Documented by: JOANNE Ondansetron HCl (Zofran) 4 mg IV NOW ONE Stop: 04/12/19 16:16 Last Admin: 04/12/19 18:02 Dose: 4 mg Documented by: JOANNE Ondansetron HCl (Zofran Odt Prepack) 1 bottle MISC SEEINSTR ONE Stop: 04/12/19 19:44 Last Admin: 04/12/19 19:57 Dose: 1 bottle Documented by: MARQUITA Pantoprazole Sodium (Protonix) 40 mg IV NOW ONE Stop: 04/12/19 16:17 Last Admin: 04/12/19 18:02 Dose: 40 mg Documented by: JOANNE Vital Signs Vital signs: Vital Signs - 8 hr 04/12/19 20:09 Temperature 98.4 F Pulse Rate 98 H Respiratory Rate 16 Blood Pressure 119/56 L Pulse Oximetry 100 <Hiren Baker MD - Last Filed: 04/13/19 23:17> Orders Ordered: Discontinued Medications Sodium Chloride (Normal Saline 0.9%) 1,000 mls @ 1,000 mls/hr IV BOLUS ONE Stop: 04/12/19 17:14 Last Infusion: 04/12/19 19:19 Dose: 0 mls/hr Documented by: Admin: 04/12/19 18:02 Dose: 1,000 mls/hr Documented by: JOANNE Nitrofurantoin Macrocrystals (Macrobid 100 Mg Capsule) 100 mg PO NOW ONE Stop: 04/12/19 19:10 Last Admin: 04/12/19 19:18 Dose: 100 mg Documented by: JOANNE Ondansetron HCl (Zofran) 4 mg IV NOW ONE Stop: 04/12/19 16:16 Last Admin: 04/12/19 18:02 Dose: 4 mg Documented by: JOANNE Ondansetron HCl (Zofran Odt Prepack) 1 bottle MISC SEEINSTR ONE Stop: 04/12/19 19:44 Last Admin: 04/12/19 19:57 Dose: 1 bottle Documented by: MARQUITA Pantoprazole Sodium (Protonix) 40 mg IV NOW ONE Stop: 04/12/19 16:17 Last Admin: 04/12/19 18:02 Dose: 40 mg Documented by: JOANNE Vital Signs Vital signs: Vital Signs - 8 hr 04/12/19 20:09 Temperature 98.4 F Pulse Rate 98 H Respiratory Rate 16 Blood Pressure 119/56 L Pulse Oximetry 100 MDM - Nausea/Vomiting/Diarrhea <BILL Zamora - Last Filed: 04/13/19 01:59> Differential Diagnosis Differential diagnosis: Likely gastroenteritis, dehydration and other (Nausea and vomiting during , UTI) Medical Records Attestation: I reviewed the patient's medical records. Lab Data Attestation: I reviewed the patient's lab results. Result diagrams: 04/12/19 16:55 04/12/19 16:55 Labs: Lab Results 04/12/19 04/12/19 04/12/19 Range/Units 16:55 16:55 18:02 WBC 11.9 H (4.5-11.0) X10^3/uL RBC 3.78 L (4.0-5.2) X10^6/uL Hgb 11.5 L (12.0-16.0) g/dL Hct 34.5 L (36-46) % MCV 91.4 (80-100) fL MCH 30.4 (26-34) PG MCHC 33.3 (30-36) % RDW 13.2 (11.6-14.8) % Plt Count 267 (150-400) X10^3/uL Neut % (Auto) 85.2 H (50-75) % Lymph % (Auto) 7.1 L (25-40) % [place] % (Auto) 5.8 (3-14) % Eos % (Auto) 1.7 L (2-4) % Baso % (Auto) 0.2 (0-2) % Neut # (Auto) 38192 H (8536-9470) /uL Lymph # (Auto) 800 L (5230-9032) /uL [place] # (Auto) 700 (0-900) /uL Eos # (Auto) 200 (0-450) /uL Baso # (Auto) 0 (0-100) /uL Sodium 136 L (137-145) mmol/L Potassium 4.0 (3.4-5.1) mmol/L Chloride 106 (98-107) mmol/L Carbon Dioxide 23 (22-32) mmol/L BUN 6 L (7-17) mg/dL Creatinine 0.50 L (0.52-1.04) mg/dL Estimated GFR > 60.0 (>60) mL/min BUN/Creatinine Ratio 12.0 (6-22) Glucose 77 (70-100) mg/dL Calcium 8.7 (8.4-10.2) mg/dL Total Bilirubin 0.3 (0.2-1.3) mg/dL AST 19 (14-36) IU/L ALT 13 (<35) IU/L Alkaline Phosphatase 73 (38-126) U/L Total Protein 6.9 (6.3-8.2) g/dL Albumin 3.6 (3.5-5.0) g/dL Globulin 3.3 (1.7-4.1) g/dL Albumin/Globulin Ratio 1.1 (1.0-2.8) Lipase 30 (23-300) U/L Urine RBC None seen (0-5/HPF) Urine WBC 5-10/hpf H (0-5/HPF) Ur Squamous Epith Cells 5-10 /hpf H (0-5/HPF) Amorphous Sediment 1+ Urine Bacteria Many (>30) H (None) Urine Mucus 1+ H (Negative) Ur Culture Indicated? Specimen cultured Urine Dip Bedside Urine Glucose Negative Bedside Urine Bilirubin - Negative Bedside Urine Ketone ++ 40 Urine Specific [place] 1.010 Bedside Urine Occult Blood - Negative Bedside Urine pH 6.0 Bedside Urine Protein +/- 15 Bedside Urine Urobilinogen +/- 1mg Bedside Urine Nitrite - Negative Bedside Urine Leukocytes + 70 Esterase MDM Narrative Medical decision making narrative: This is a 19-week EGA female review sitting to ED today with different chief complain of multiple episodes of nonbloody vomiting and nausea since last night. Patient denies current vaginal bleeding. Reports mild supra pubic vision discomfort. Abdominal physical exam was benign. Patient had is afebrile with normal intensive with mild tachycardia. Very mildly elevated leukocytosis of 11.9 with mild anemia. H/H of 11.534.5. Very mild sodium of 136. Patient was hydrated with IV fluid, Zofran, and pantoprazole for her symptoms. Patient reports pain and nausea improved after this and was able to tolerate ice chips and oral fluid intake before discharged to home. UA showed small amount of leuko esterase, ketones and protein. Micro urine test shows many bacteria with 5-10/hph of urine WBC. Patient was treate with nitrofurantoin prior discharging to home her UTI. Urine is currently pending for culture. Patient advised to hydrate herself with small sips of clear liquids and discharged to home with prepack Zofran and remaining doses of nitrofurantoin and additional Zofran. Return precautions were discussed with the patient and patient verbalized understanding and in agreement with treatment plan. <Hiren Baker MD - Last Filed: 04/13/19 23:17> Lab Data Labs: Lab Results 04/12/19 04/12/19 04/12/19 Range/Units 16:55 16:55 18:02 WBC 11.9 H (4.5-11.0) X10^3/uL RBC 3.78 L (4.0-5.2) X10^6/uL Hgb 11.5 L (12.0-16.0) g/dL Hct 34.5 L (36-46) % MCV 91.4 (80-100) fL MCH 30.4 (26-34) PG MCHC 33.3 (30-36) % RDW 13.2 (11.6-14.8) % Plt Count 267 (150-400) X10^3/uL Neut % (Auto) 85.2 H (50-75) % Lymph % (Auto) 7.1 L (25-40) % [place] % (Auto) 5.8 (3-14) % Eos % (Auto) 1.7 L (2-4) % Baso % (Auto) 0.2 (0-2) % Neut # (Auto) 46717 H (5247-2214) /uL Lymph # (Auto) 800 L (6949-7871) /uL [place] # (Auto) 700 (0-900) /uL Eos # (Auto) 200 (0-450) /uL Baso # (Auto) 0 (0-100) /uL Sodium 136 L (137-145) mmol/L Potassium 4.0 (3.4-5.1) mmol/L Chloride 106 (98-107) mmol/L Carbon Dioxide 23 (22-32) mmol/L BUN 6 L (7-17) mg/dL Creatinine 0.50 L (0.52-1.04) mg/dL Estimated GFR > 60.0 (>60) mL/min BUN/Creatinine Ratio 12.0 (6-22) Glucose 77 (70-100) mg/dL Calcium 8.7 (8.4-10.2) mg/dL Total Bilirubin 0.3 (0.2-1.3) mg/dL AST 19 (14-36) IU/L ALT 13 (<35) IU/L Alkaline Phosphatase 73 (38-126) U/L Total Protein 6.9 (6.3-8.2) g/dL Albumin 3.6 (3.5-5.0) g/dL Globulin 3.3 (1.7-4.1) g/dL Albumin/Globulin Ratio 1.1 (1.0-2.8) Lipase 30 (23-300) U/L Urine RBC None seen (0-5/HPF) Urine WBC 5-10/hpf H (0-5/HPF) Ur Squamous Epith Cells 5-10 /hpf H (0-5/HPF) Amorphous Sediment 1+ Urine Bacteria Many (>30) H (None) Urine Mucus 1+ H (Negative) Ur Culture Indicated? Specimen cultured Urine Dip Bedside Urine Glucose Negative Bedside Urine Bilirubin - Negative Bedside Urine Ketone ++ 40 Urine Specific [place] 1.010 Bedside Urine Occult Blood - Negative Bedside Urine pH 6.0 Bedside Urine Protein +/- 15 Bedside Urine Urobilinogen +/- 1mg Bedside Urine Nitrite - Negative Bedside Urine Leukocytes + 70 Esterase Discharge Plan Departure Patient Disposition: Home Clinical Impression: Nausea & vomiting Qualifiers: Vomiting type: unspecified Vomiting Intractability: non-intractable Qualified Code(s): R11.2 - Nausea with vomiting, unspecified UTI (urinary tract infection) Qualifiers: Urinary tract infection type: site unspecified Hematuria presence: without hematuria Qualified Code(s): N39.0 - Urinary tract infection, site not specified Discharge Date/Time: 04/12/19 20:05 Instructions: DI for Urinary Tract Infection (UTI), DI for Vomiting -- Adult Activity Restrictions/Additional Instructions: You have been diagnosed with [nausea and vomiting and UTI. Your urine is pending culture and you will receive a phone call if you need coverage with different antibiotic medication. First dose antibiotic medication nitrofurantoin was provided while in ED and please take twice a day for next 5 days]. What to do: *Take your medications as directed. Please hydrate herself with small sips frequently with water, juice, sports drinks. You can take Zofran as needed for nausea and vomiting. This medication has been transmitted to [facility]. *Follow up with your primary care provider in 2-3 days, call for an appointment. Let them know you were seen in the ED and that we asked you to be seen in follow up. *Return to ED if you have any new, worsening, or concerning symptoms, such as [chest pain, breathing difficulty, unable to tolerate fluids, high fever, vaginal bleeding, back pain, or any acute concerns]. Prescriptions: New nitrofurantoin macrocrystal 100 mg capsule 100 mg PO Q12H 5 Days Qty: 9 RF: 0 ondansetron 4 mg tablet,disintegrating 4 mg PO Q6-8H PRN (Reason: nausea and vomiting) Qty: 10 RF: 0 No Action Vitamin 27 mg iron- 0.8 mg tablet 1 tab PO DAILY RF: 0
== END 2019-04-12 20:05 | disposition home or self-care (01) ==
PROVIDERS: Emergency Provider Nurse Practitioner Family
DX: N39.0 Urinary tract infection, site not specified (principal); R11.2 Nausea with vomiting, unspecified
CPT/HCPCS: 36415; 80053; 81003; 81015; 83690; 85025; 87086; 96361; 96374; 96375; 99284; C9113; J2405

== ENCOUNTER 2019-11-03 10:08 | Emergency (ER) | payer OTHER, SELFPAY ==
[2019-11-03 10:15] VITALS: BP 144/79; PULSE 91; RESP 14; TEMP 36.9; O2SAT 98
[2019-11-03 11:36] VITALS: BP 111/58; PULSE 66; RESP 18; O2SAT 99
--- NOTE | 2019-11-03 18:15 | ED_ITS ---
HPI - URI/Sore Throat <BILL Zamora - Last Filed: 11/03/19 18:32> General Chief Complaint: Upper Respiratory Symptoms Stated Complaint: sore throat, tonsil pain Time Seen by Provider: 11/03/19 10:59 Source: patient Mode of arrival: Ambulatory Limitations: no limitations History of Present Illness HPI Narrative: This is a 19-year-old female, nonsmoker, with noncontributing history presents to ED with chief complain of headache and sore throat for 2 days. Patient denies recent URI symptoms including runny nose, cough, fever, chills, nausea or vomiting. She reports saw small pus in the tonsils. LMP today. She delivered recently and traveled from [place] and had cool be test done upon arrival which was negative. Patient reports pain as 6/10 and had taken Advil last night which helped with symptoms. Patient denies dyspnea or dysphagia. Related Data Home Medications Medication Instructions Recorded Confirmed No Known Home Medications 11/03/19 11/03/19 Allergies Allergy/AdvReac Type Severity Reaction Status Date / Time No Known Drug Allergies Allergy Verified 11/03/19 10:21 Review of Systems <BILL Zamora - Last Filed: 11/03/19 18:32> Review of Systems Narrative: General: Denies fever, chills, fatigue, malaise, sweats. HEENT: See HPI Respiratory: Denies dyspnea, cough, wheezing, hemoptysis, sputum. Cardiovascular: Denies chest pain, palpitations, orthopnea, edema. Gastrointestinal: Denies nausea, vomiting, abdominal pain, diarrhea, constipation, melena. : Denies dysuria, frequency, incontinence, hematuria, urinary retention. Musculoskeletal: Denies weakness, joint pain or bony pain. Skin: Denies rash, skin lesions, or other. Neurologic: Denies weakness, headache, numbness, change in speech, confusion, seizures, incoordination. Psychiatric: No concerning psychosocial issues. 12-point review of systems is negative except for those stated above. Patient History <BILL Zamora - Last Filed: 11/03/19 18:32> Medical History Patient denies medical problems (Chronic) Surgical History No history of previous surgery (Chronic) Social History Smoking Status: Never smoker Smoking Status: Never smoker alcohol intake frequency: 0-2 drinks per day Substance Use Type: does not use Exam <BILL Zamora - Last Filed: 11/03/19 18:32> Narrative Exam Narrative: General appearance: well developed, well nourished, in no acute distress. Head: normocephalic, atraumatic, no scalp lesions, non-tender. ENT: Bilateral auditory canals and tympanic membranes clear. Hearing grossly intact. Nose without bleeding, purulent discharge, septal hematoma or deviation. Turbinate without erythema or swelling. Facial sinuses nontender to palpate. Mucous membrane moist, no mucosal lesion. Throat with erythema, tonsillar hypertrophy or small exudate. Uvula in midline, airway patent. Neck/Thyroid: neck supple, full range of motion, no visible masses or meningeal signs. No JVD, non-tender without lymphadenopathy. Skin: no suspicious rashes, lesions over visible areas. Warm and dry and appropriate color for ethnicity. Heart: no clubbing, no cyanosis, no edema. S1 and S2 normal. RRR w/o murmurs, clicks, or bruits. Lungs: Breathing even and unlabored. No stridor. No accessory muscles used. Able to speak in full sentences. Chest: normal shape and expansion. Abdomen: non-obese, non-distended. Neurologic: alert and oriented. Cognitive exam, ASSOCIATE PROFESSOR OF ART and PNS grossly intact on informal exam. Psych: good eye contact, normal affect. Initial Vital Signs Initial Vital Signs: Vital Signs Temperature 98.5 F 11/03/19 10:15 Pulse Rate 91 H 11/03/19 10:15 Respiratory Rate 14 11/03/19 10:15 Blood Pressure 144/79 H 11/03/19 10:15 Pulse Oximetry 98 11/03/19 10:15 <Shahnaz Guerrier DO - Last Filed: 11/05/19 08:25> Initial Vital Signs Initial Vital Signs: Vital Signs Temperature 98.5 F 11/03/19 10:15 Pulse Rate 91 H 11/03/19 10:15 Respiratory Rate 14 11/03/19 10:15 Blood Pressure 144/79 H 11/03/19 10:15 Pulse Oximetry 98 11/03/19 10:15 Scores <BILL Zamora - Last Filed: 11/03/19 18:32> GCS [place] coma scale eye opening: Spontaneous Rashid coma scale verbal response: Orientated [place] coma scale motor response: Obey commands Rashid coma scale total score: 15 qSOFA Altered Mental Status (GCS <15): No Respiratory rate greater than/equal to 22: No Systolic blood pressure less than or equal to 100: No qSOFA Total: 0 0-1 Not High Risk 1-3 High risk Citation:: Centor score 2 Course <BILL Zamora - Last Filed: 11/03/19 18:32> Orders Ordered: ED Orders 11/03/19 11:32 Throat Culture Stat Vital Signs Vital signs: Vital Signs - 8 hr 11/03/19 11:36 Pulse Rate 66 Respiratory Rate 18 Blood Pressure 111/58 L Pulse Oximetry 99 <Shahnaz Guerrier DO - Last Filed: 11/05/19 08:25> Orders Ordered: ED Orders 11/03/19 11:32 Throat Culture Stat Vital Signs Vital signs: Vital Signs - 8 hr 11/03/19 11:36 Pulse Rate 66 Respiratory Rate 18 Blood Pressure 111/58 L Pulse Oximetry 99 MDM - URI/Sore Throat <BILL Zamora - Last Filed: 11/03/19 18:32> Differential Diagnosis Differential diagnosis: Likely pharyngitis and other (strep infection) Lab Data Attestation: I reviewed the patient's lab results. Labs: Point of Care Testing Rapid Strep A Negative MDM Narrative Medical decision making narrative: POC strep test was negative. Patient had recent Covid 19 test with negative result after traveling from [place] to [place]. Centor score 2. Throat culture is pending. Throat appears to be erythematous with mild hypertrophy with few spots of exudates. No lymphedenopathy. Patient advise symptoms treatment with Tylenol and or Motrin as needed and warm salt water gargle. Return precautions were discussed with patient and patient verbalized understanding and agreement with the treatment plan. She advised not to share utensils, food, drinks, and to wear mask around her new with good hand hygiene. <Shahnaz Guerrier DO - Last Filed: 11/05/19 08:25> Lab Data Labs: Point of Care Testing Rapid Strep A Negative Discharge Plan Departure Patient Disposition: Home Clinical Impression: Pharyngitis Qualifiers: Pharyngitis/tonsillitis etiology: unspecified etiology Qualified Code(s): J02.9 - Acute pharyngitis, unspecified Discharge Date/Time: 11/03/19 11:37 Instructions: DI for Pharyngitis/Tonsillopharyngitis -- Adult Activity Restrictions/Additional Instructions: You have been diagnosed with [pharyngitis. Strep throat test was negative in ED. throat culture is pending. You will receive a phone call if you require of an antibiotic medication.]. What to do: *Take your medications as directed. You can take [id number] Tylenol and or Motrin as needed for discomfort. Tylenol 650-1000 mg up to 3 to 4 times a day as needed. Ibuprofen 400-600 mg up to 3 to 4 times a day as needed with food to decrease GI irritation. Try use warm salt water gargle 3 to 4 times a day as needed for comfort. *Follow up with your primary care provider in 2-3 days, call for an appointment. Let them know you were seen in the ED and that we asked you to be seen in follow up. *Return to ED if you have any new, worsening, or concerning symptoms, such as [chest pain, breathing difficulty, unable to tolerate fluids, significant swelling to her throat, worsening pain, difficulty with swallowing or any acute concerns]. Prescriptions: No Action No Known Home Medications RF: 0 <Shahnaz Guerrier DO - Last Filed: 11/05/19 08:25> Cosign ED Attending Colt Attestation: I was immediately available in the department for consultation. Documentation has been reviewed. I agree with asse ssment and plan.
== END 2019-11-03 11:37 | disposition home or self-care (01) ==
PROVIDERS: Emergency Provider Nurse Practitioner Family
DX: J02.9 Acute pharyngitis, unspecified (principal); R51 Headache
CPT/HCPCS: 87070; 87077; 87147; 87880; 99282